=== PATIENT | male | born 1945 | race Caucasian/White ===

== ENCOUNTER → 2018-02-03 | Outpatient (CLI) | payer BC | LOC: FIMAGING 17:47 | PROVIDERS: ATTEND Psychiatry & Neurology Neurology | DX: R90.89 Other abnormal findings on diagnostic imaging of central nervous system (principal); R25.1 Tremor, unspecified; R41.0 Disorientation, unspecified ==

== ENCOUNTER → 2018-02-14 | Outpatient (CLI) | payer BC ==
--- NOTE | 2018-02-17 12:32 | CPEEG ---
DATE OF STUDY: 02/14/2018 INTERPRETATION: Normal EEG during wakefulness and sleep. There were no potentially epileptogenic ab normalities present during the recording. REPORT: This EEG contains 10 Hz alpha activity to the posterior head regions. There was no abnormal activation at rest, during photic stimulation or hyperventilation. The patient became drowsy and fe ll asleep during the study. There was no abnormal activation during drowsiness, sleep, or during karyn es of arousal. /[id number]/MODL
== END ==
LOC: FCP 11:25
PROVIDERS: ATTEND Psychiatry & Neurology Neurology
DX: R25.1 Tremor, unspecified (principal); R41.0 Disorientation, unspecified; F32.9 Major depressive disorder, single episode, unspecified

== ENCOUNTER → 2018-04-04 | Outpatient (CLI) | payer BC | LOC: BMCIMAGING 14:23 | PROVIDERS: ATTEND Internal Medicine | DX: Z13.820 Encounter for screening for osteoporosis (principal); M85.89 Other specified disorders of bone density and structure, multiple sites ==